=== PATIENT | male | born 1995 | race Asian ===

== ENCOUNTER 2017-09-24 19:35 | Emergency (ER) | payer OTHER ==
[~2017-09-24] VITALS: Ht 172.7 cm; Wt 65.0 kg
[2017-09-24 19:39] VITALS: BP 120/52; PULSE 98; TEMP 36.9; O2SAT 98; Ht 172.7 cm; Wt 65.0 kg
[2017-09-24] MEDS ORDERED: IBUPROFEN 600 MG TAB PO STA (20:01)
--- NOTE | 2017-09-24 20:53 | DIAGNOSTIC IMAGING REPORT ---
LEFT ANKLE 3 VIEWS HISTORY: L ankle injury COMPARISON: None. FINDINGS: There is no oblique fracture within the distal left fibula which demonstrates up to 2 mm of lateral displacement. The distal tibia is intact. Slight widening at the medial ankle joint. Diffuse soft tissue swelling. No radiopaque foreign bodies. IMPRESSION: Mildly displaced fracture within the distal left fibula with slight widening of the medial ankle joint. Electronically signed by: Jason Evans M.D. 09/24/2017 8:52 PM Dictated Date/Time: 09/24/2017 8:51 PM
--- NOTE | 2017-09-24 20:56 | EMERGENCY ROOM VISIT NOTE ---
History First contact with patient: 19:43 Chief Complaint: ANKLE PAIN Stated Complaint: HUFT LEFT ANKLE History of Present Illness The patient is a 21 year old male who presents to the Emergency Room with complaints of an injury to his left ankle this evening. The patient was doing acrobatics when he landed on his foot wrong, and inverted the ankle. The patient denies any pain extending into the leg or knee region. He denies any paresthesias or numbness of the left foot or toes. The patient denies any prior history of left ankle fracture was a rather significant injuries, and rates his pain a 7 out of 10 with weightbearing. Review of Systems 10 system review was performed and was negative except for pertinent positives and negatives as indicated in history of present illness Past Medical/Surgical History Medical Problems: (1) No significant past medical history Surgical Problems: (1) No history of previous surgery Family History Unremarkable Social History Smoking Status: Never Smoker Alcohol Use: occasionally Marital Status: single Occupation Status: [employer] Current/Historical Medications No Active Prescriptions or Reported Meds Physical Exam Vital Signs Date Time Temp Pulse Resp B/P (MAP) Pulse Ox O2 Delivery O2 Flow Rate FiO2 09/24/17 19:39 36.9 98 18 120/52 98 Room Air Physical Exam CONSTITUTIONAL: Healthy and well nourished. Alert and oriented X 3 with positive affect. HEENT: Normocephalic, atraumatic. Pupils equal, round and reactive. NECK: Full active range of motion without discomfort. MUSCULOSKELETAL: Examination of the left ankle shows diffuse edema without any open wounds, ecchymosis or deformity. The patient has tenderness over the medial and lateral ankle region. Negative anterior drawer. No focal tenderness to palpation of the dorsal midfoot, metatarsals, phalanges, calcaneus or Achilles tendon. No tenderness to palpation of the proximal fibular region. Pedal pulses are intact. INTEGUMENTARY: No rash or other significant dermatologic conditions noted. NEUROLOGIC: Left foot and toes are sensory intact. Medical Decision & Procedures ER Provider Diagnostic Interpretation: My interpretation of left ankle x-rays shows a distal fibular fracture with mild medial mortise widening. No dislocation noted. Radiologist report is as follows: LEFT ANKLE 3 VIEWS HISTORY: L ankle injury COMPARISON: None. FINDINGS: There is no oblique fracture within the distal left fibula which demonstrates up to 2 mm of lateral displacement. The distal tibia is intact. Slight widening at the medial ankle joint. Diffuse soft tissue swelling. No radiopaque foreign bodies. IMPRESSION: Mildly displaced fracture within the distal left fibula with slight widening of the medial ankle joint. Medications Administered Medications (Trade) Dose Ordered Sig/Tiffany Route Start Time Stop Time Status Last Admin Dose Admin Ibuprofen (Motrin Tab) 600 mg NOW STAT PO 09/24/17 20:01 09/24/17 20:02 DC 09/24/17 20:25 600 MG ED Course Patient history and physical exam were performed. Nurse's notes were reviewed. Vital signs were reviewed and were normal. The patient refused any analgesics on initial exam. X-rays of the left ankle confirms a distal fibula fracture with mild medial mortise widening. A posterior Ortho-Glass splint and crutches were applied. The patient was encouraged to ice and elevate the ankle for swelling. Ibuprofen and Tylenol as needed for pain relief. Follow-up with Dr. Lewis for further evaluation and management. The patient was happy with plan of care, voiced understanding of all discharge instructions, and rated his discomfort a 3 out of 10 at the conclusion of my exam. Medical Decision Medication Reconcilliation Current Medication List: was personally reviewed by me Blood Pressure Screening Patient's blood pressure: Normal blood pressure Impression Primary Impression: Closed fracture of left distal fibula Departure Information Prescriptions No Active Prescriptions or Reported Meds Referrals No Doctor, Assigned (PCP) Patient Instructions My [facility] Health Problem Qualifiers Primary Impression: Closed fracture of left distal fibula Encounter type: initial encounter Fracture morphology: other fracture Qualified Codes: S82.832A - Other fracture of upper and lower end of left fibula, initial encounter for closed fracture
[2017-09-27] MEDS ORDERED: IBUP-103 PO (11:05)
== END 2017-09-24 21:16 | disposition home or self-care (01) ==
LOC: C.EDB 19:37 → C.EDD 21:16
DX: S82.832A Other fracture of upper and lower end of left fibula, initial encounter for closed fracture (principal); X50.9XXA Other and unspecified overexertion or strenuous movements or postures, initial encounter

== ENCOUNTER → 2017-09-28 | Day surgery (SDC) | payer OTHER ==
[2017-09-27 11:06] VITALS: Ht 172.7 cm; Wt 66.8 kg
[~2017-09-28] VITALS: Ht 172.7 cm; Wt 66.8 kg
[~2017-09-28] MED LIST: ATROPINE SULFATE 0.1 MG/ML 5ML SYR IV PRN; BUPIVACAINE/EPINEPHRINE 0.5% MPF 1:200,000 30 ML VIAL ONE; CLINDAMYCIN 300MG IV ONE; CLINDAMYCIN IV 300 MG in DEXTROSE 5% 50ML 50 ML IV SCH; CLINDAMYCIN PHOS 150 MG/ML 2 ML VIAL IV SCH; CLINDAMYCIN PHOS 150 MG/ML 2 ML VIAL ONE; DEXAMETHASONE SOD INJ 4 MG/ML VIAL IV PRN; DEXAMETHASONE SOD INJ 4 MG/ML VIAL ONE; EpHEDrine SULFATE INJ 50 MG/ML AMP IV PRN; FENTANYL CITRATE INJ 50 MCG/1 ML 2 ML VIAL IV PRN; FENTANYL CITRATE INJ 50 MCG/1 ML 2 ML VIAL ONE; IBUP-103 PO; KETOROLAC TROMETHAMINE 30 MG/ML VIAL IV. PRN; LABETALOL HCL IV 5 MG/ML 20ML IV PRN; LIDOCAINE HCL 2% 2 ML VIAL (20MG/ML) ONE; METOCLOPRAMIDE HCL INJ 5 MG/ML 2 ML VIAL IV PRN; MIDAZOLAM HCL 1 MG/ML 2ML VIAL ONE; MoRPHine SULFATE 10 MG/ML CARP/VIAL IV PRN; ONDANSETRON INJ 2 MG/ML 2 ML VIAL IV PRN; ONDANSETRON INJ 2 MG/ML 2 ML VIAL ONE; OXYC-57 PO; OXYCODONE/ACETAMINOPHEN 5-325 TAB PO PRN; PHENYLEPHRINE 100MCG/ML 5ML SYR IV PRN; PROPOFOL IV EMULSION 10 MG/ML 20 ML VIAL IV ONE; SODIUM CHLORIDE 0.9% 1000ML 1,000 ML IV SCH
--- NOTE | 2017-09-28 06:49 | History & Physical Bridge - SC ---
H&P Re-Evaluation Bridge Note: I have examined the patient, reviewed the History & Physical and in the interval since the performance of the History & Physical I have noted the following changes of clinical significance: No changes noted
--- NOTE | 2017-09-28 08:17 | [facility] Post Operative Brief Note ---
Immediate Operative Summary Operative Date Sep 28, 2017. Pre-Operative Diagnosis Left ankle fracture Post-Operative Diagnosis Same as pre-op Procedure(s) Performed Left Ankle Open Reduction Internal Fixation Surgeon Exhibits Curator Surgeon(s) Cailin Estimated Blood Loss 10ML Findings Consistent with Post-Op Diagnosis Specimens None Drains None Anesthesia Type General Complication(s) none Disposition Accompanied Pt To Recovery: no Disposition: Recovery Room / PACU
--- NOTE | 2017-09-28 08:23 | DIAGNOSTIC IMAGING REPORT ---
SURGICNTR ANKLE COMP MIN 3 V CLINICAL HISTORY: ORIF LEFT ANKLEtrauma COMPARISON STUDY: 09/24/2017 FLUOROSCOPY TIME: 19 seconds. FINDINGS: Anatomic position post open reduction internal fixation of the distal fibula. A linear plate and multiple screws are present. Ankle mortise is aligned appropriately. IMPRESSION: Anatomic alignment post open reduction internal fixation. The above report was generated using voice recognition software. It may contain grammatical, syntax or spelling errors. Electronically signed by: Omar Reed M.D. 09/28/2017 8:22 AM Dictated Date/Time: 09/28/2017 8:20 AM
--- NOTE | 2017-09-28 08:25 | Discharge Instructions-SurgCtr ---
Discharge Instructions Date of Service Sep 28, 2017. Visit Reason for Visit: Left Ankle Closed Fracture; Acute Ankle Pain Discharge Discharge Diagnosis / Problem: LEFT ANKLE FRACTURE Discharge Goals Goal(s): Therapeutic intervention Activity Recommendations Activity Limitations: per Instructions/Follow-up section Weightbearing Status: Left non-weightbearing Anesthesia . Post Anesthesia Instructions: If you have had General Anesthesia or IV Sedation: * Do not drive today. * Resume driving when surgeon permits. * Do not make important decisions or sign legal documents today. * Call surgeon for: 1. Temperature elevations greater than 101 degrees F. 2. Uncontrollable pain. 3. Excessive bleeding. 4. Persistent nausea and vomiting. 5. Medication intolerance (nausea, vomiting or rash). * For nausea and vomiting use only clear liquids such as: tea, soda, bouillon until nausea subsides, then gradually increase diet as tolerated. * If you have any concerns or questions, call your surgeon's office. If physician is unavailable and it is an emergency, call 911 or go to the nearest emergency room. . Instructions / Follow-Up Instructions / Follow-Up MEDICATIONS: * Resume previous medications unless instructed otherwise by your surgeon. * Always take pain medication on a full stomach or with food to avoid upset stomach. * Do not drink alcohol or drive while taking narcotics. * Ibuprofen or Tylenol may be taken if narcotic not needed. SPECIAL CARE INSTRUCTIONS: __ None _X_ Keep extremity elevated and iced x 48 hours; apply ice 20-30 minutes 8-10 times/day. May remove at night. _X_ Crutches __ May discard when able __ Brace/Post-op shoe __ 24 hrs/day __ Remove at night _X_ Dressing X__ Maintain until seen in office, may shower with plastic over site __ Remove dressings in 24-48 hours and then may shower __ Cover incisions with band-aids after showering __ Do not remove steri-strips Call physician if chills or temperature rises above 102 degrees or pain unrelieved by prescribed pain medications. Office [phone] FOLLOW UP IN 2 WEEKS Diet Recommendations Home Diet: resume previous diet Procedures Procedures Performed: Left Ankle Open Reduction Internal Fixation Pending Studies Studies pending at discharge: no Medical Emergencies . Who to Call and When: Medical Emergencies: If at any time you feel your situation is an emergency, please call 911 immediately. . Non-Emergent Contact Non-Emergency issues call your: Surgeon . . "Provider Documentation" section prepared by Presley Jarrell. .
[2017-09-28 09:13] VITALS: TEMP 36.6
--- NOTE | 2017-09-28 09:13 | OPERATIVE REPORT ---
DATE OF OPERATION: 09/28/2017 SURGEON: Isael Henriquez MD SEO CONSULTANT: MARYLU Matt PREOPERATIVE DIAGNOSIS: Left Gillespie B ankle fracture with deltoid ligament injury. POSTOPERATIVE DIAGNOSIS: Left Gillespie B ankle fracture with deltoid ligament injury. PROCEDURE PERFORMED: Open reduction and internal fixation of left Gillespie B ankle fracture. COMPLICATIONS: None. ESTIMATED BLOOD LOSS: 10 mL. TOURNIQUET TIME: 33 minutes at 300 mmHg. ANESTHESIA: General. SPECIMENS: None. 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 He kind of rolled his ankle and had acute onset of pain and could not ambulate afterwards. X-rays in the ER revealed a Gillespie B ankle fracture with a deltoid ligament injury. We did a stress exam which showed clear gapping of the medial clear space. The patient is indicated for surgical fixation. OPERATIVE IMPLANTS: Operative implants consisted of: 1. A Synthes 7-hole 1/3 semitubular stainless steel plate. 2. 3.5 fully threaded cortical screws x5. 3. 4.0 fully threaded cancellous screws x3. OPERATIVE PROCEDURE: The patient was taken to the operating, identified, and placed on the operating table in supine position. All contact areas were appropriately padded. IV antibiotics were provided by the anesthesia team. The general anesthetic was implemented by anesthesia team. A left thigh tourniquet was then placed. The left lower extremity was then prepped and draped in usual sterile fashion. The left leg was elevated and exsanguinated with Esmarch and tourniquet was placed at 300 mmHg. Direct lateral approach to the fibula was then performed through a longitudinal incision over the fibula. Sharp dissection was carried through subcutaneous tissue down to the periosteum. The periosteum was incised sharply and dissected off the fracture site. We tried to minimize stripping to maximize healing potential. The fracture was exposed. I externally rotated the ankle and cleaned out the fracture site. I irrigated this. I then reduced this applying longitudinal traction and reduction clamp across the fracture site. X-ray was brought in. Fracture was anatomically aligned. I then fixed it with a single 3.5 cortical screw placed in a lag fashion from [id number]. I then contoured a 7-hole 1/3 semitubular plate to the lateral aspect of the fibula. It was fixed proximally with four 3.5 fully threaded cortical screws and distally with three 4.0 fully threaded cancellous screws. This provided excellent fixation. I then stressed the ankle and there was no further gap in the medial clear space. There was no need for syndesmosis screw fixation. I then irrigated the wound extensively. I injected locally with 30 mL of 0.5% Marcaine with epinephrine. The periosteum was then closed with 0 Vicryl suture in a [id number] fashion. The tourniquet was then let down for a tourniquet time 33 minutes. Hemostasis was assured using electrocautery. The subcutaneous tissue was then closed with 2-0 Dexon suture in a buried interrupted fashion. The skin was closed with 3-0 nylon suture in a horizontal mattress fashion. The leg was then cleaned and dried and a sterile dressing of Xeroform, 4 x 4s, sterile cast padding, a well-padded posterior and stirrup splint were applied. The patient was then brought out of general anesthesia and transferred to the recovery room in stable condition. The patient tolerated with no complication. All needle and sponge counts were correct at the end of the operation. I attest to the content of the Intraoperative Record and any orders documented therein. Any exception s are noted below.
--- NOTE | 2017-09-28 09:17 | Anesthesia Progress Nt - [facility] ---
Anesthesia Post Op Note Date & Time Sep 28, 2017 at 09:16 Vital Signs Pain Intensity: 0 Vital Signs Past 12 Hours Date Time Temp Pulse Resp B/P (MAP) Pulse Ox O2 Delivery O2 Flow Rate FiO2 18 09:13 36.6 69 16 110/64 (79) 100 Room Air 18/18 09:07 64 12 98 18/18 09:07 67 12 18/18 09:06 111/70 18/18 09:03 68 8 96 18/18 09:03 68 8 18/18 09:03 36.6 73 20 111/70 98 Room Air 18 09:01 124/74 18/18 08:58 76 13 98 18/18 08:58 75 13 18/18 08:57 71 13 98 18/18 08:57 71 13 18/18 08:56 120/72 18/18 08:54 73 16 18/18 08:54 74 16 100 18/18 08:53 74 18 4/18/18 08:53 74 18 100 4/18/18 08:52 76 8 4/18/18 08:52 76 8 100 /18/18 08:51 118/77 4/18/18 08:49 74 11 4/18/18 08:49 75 11 100 4/18/18 08:48 74 10 4/18/18 08:48 75 10 100 /18/18 08:47 74 14 4/18/18 08:47 74 14 100 /18/18 08:46 119/77 4/18/18 08:43 76 9 4/18/18 08:43 73 9 100 4/18/18 08:41 114/73 4/18/18 08:38 74 14 100 4/18/18 08:38 76 14 4/18/18 08:37 78 11 4/18/18 08:37 79 11 100 4/18/18 08:36 111/47 4/18/18 08:32 69 13 99 4/18/18 08:32 69 13 4/18/18 08:31 104/50 4/18/18 08:27 68 15 99 4/18/18 08:27 68 15 4/18/18 08:26 114/52 4/18/18 08:25 66 14 100 09/28/17 08:25 67 14 09/28/17 08:20 79 12 123/65 99 09/28/17 08:20 36.5 78 14 123/65 100 Mask 8 09/28/17 08:20 79 12 09/28/17 06:25 36.5 81 16 132/70 (90) 97 Room Air Notes Mental Status: alert / awake / arousable, participated in evaluation Pt Amnestic to Procedure: Yes Nausea / Vomiting: adequately controlled Pain: adequately controlled Airway Patency, RR, SpO2: stable & adequate BP & HR: stable & adequate Hydration State: stable & adequate Anesthetic Complications: no major complications apparent
[2017-09-28 10:20] VITALS: BP 103/60; PULSE 62; O2SAT 99
== END | disposition home or self-care (01) ==
LOC: X.SURG 06:08
PROVIDERS: ATTEND Orthopaedic Surgery Sports Medicine
DX: S82.62XA Displaced fracture of lateral malleolus of left fibula, initial encounter for closed fracture (principal); X58.XXXA Exposure to other specified factors, initial encounter; Y93.89 Activity, other specified; Z98.818 Other dental procedure status; Z80.0 Family history of malignant neoplasm of digestive organs; Z88.1 Allergy status to other antibiotic agents; Z88.2 Allergy status to sulfonamides